=== PATIENT | female | born 1990 | race Caucasian/White ===

== ENCOUNTER 2017-12-10 23:55 | Emergency (ER) | payer OTHER ==
[~2017-12-10] VITALS: Ht 157.5 cm; Wt 49.9 kg
[~2017-12-10 23:55] MED LIST: ERYTHROMYCIN E3.5 G3 OPHTHALMIC; FLEXERIL PO; MEDROLDOSEPACK PO; NOHOMEMEDICATIONS; NORCO 5-325 TA1 EACH PO
[2017-12-11] MEDS ORDERED: FLEXERIL (00:04)
[2017-12-11] MEDS ORDERED: HYDROCODONE-AP1 EAC6 (00:05)
[2017-12-11] MEDS ORDERED: TRAMADOL 50 MG50 MG PO ×2 (00:22→00:24)
[2017-12-11] MEDS ORDERED: PENICILLIN V P500 MG PO (00:22)
[2017-12-11 00:55] VITALS: BP 93/51
== END 2017-12-11 00:55 | disposition home or self-care (01) ==
LOC: M.ERS 23:55
DX: K08.89 Other specified disorders of teeth and supporting structures (principal); G89.29 Other chronic pain; M54.9 Dorsalgia, unspecified; F17.210 Nicotine dependence, cigarettes, uncomplicated

== ENCOUNTER 2018-12-31 21:11 | Emergency (ER) | payer OTHER ==
[~2018-12-31] VITALS: Ht 157.5 cm; Wt 59.0 kg
[~2018-12-31 21:11] MED LIST changes: +FLEXERIL; +HYDROCODONE-AP1 EAC6; +PENICILLIN V P500 MG PO; +TRAMADOL 50 MG50 MG PO
[2018-12-31] MEDS ORDERED: AMOXICILLIN 50500 MG PO (22:17)
[2018-12-31 22:36] VITALS: BP 105/74
[2019-01-03] MEDS ORDERED: KEFLEX500 M1 PO ×2 (20:53→21:19)
== END 2018-12-31 22:37 | disposition home or self-care (01) ==
LOC: M.ERS 21:11
DX: H66.91 Otitis media, unspecified, right ear (principal); G89.29 Other chronic pain; M54.9 Dorsalgia, unspecified; F17.210 Nicotine dependence, cigarettes, uncomplicated

== ENCOUNTER 2019-06-06 16:39 | Emergency (ER) | payer OTHER, MEDICAID ==
[~2019-06-06] VITALS: Ht 157.5 cm; Wt 64.9 kg
[~2019-06-06 16:39] MED LIST changes: +AMOXICILLIN 50500 MG PO; +KEFLEX500 M1 PO
[2019-06-06] MEDS ORDERED: KEPPRA 500 MG500 M1 PO (16:55)
[2019-06-06] MEDS ORDERED: NAUSEA MED (16:55)
[2019-06-06] MEDS ORDERED: HEARTBURN MED (16:56)
[2019-06-06 18:14] VITALS: BP 102/54
== END 2019-06-06 18:15 | disposition left against medical advice (07) ==
LOC: M.ERS 16:39
DX: O26.893 Other specified pregnancy related conditions, third trimester (principal); T63.461A Toxic effect of venom of wasps, accidental (unintentional), initial encounter; O99.333 Smoking (tobacco) complicating pregnancy, third trimester; M79.643 Pain in unspecified hand; M54.2 Cervicalgia; R07.9 Chest pain, unspecified; G89.29 Other chronic pain; Z3A.29 29 weeks gestation of pregnancy; F17.210 Nicotine dependence, cigarettes, uncomplicated; Y92.89 Other specified places as the place of occurrence of the external cause